=== PATIENT | female | born 1970 | race Asian ===

== ENCOUNTER 2019-06-24 08:37 | Day surgery (SDC) | payer OTHER ==
[~2019-06-24] VITALS: Ht 152.4 cm; Wt 58.1 kg
[2019-06-24] VITALS (9 sets, daily range): BP systolic 113–131; BP diastolic 70–89
[~2019-06-24 08:37] MED LIST: DYAZIDE1 CAP PO; MECLIZINE HCL12.5 MG PO
[2019-06-24] MEDS ORDERED: CLARITIN10 M1 ORAL (09:27)
[2019-06-24] MEDS ORDERED: LR 1000ml 1,000 ML IVLG SCH (09:27)
--- NOTE | 2019-06-24 09:29 | Anethesia Preoperative Eval ---
Anesthesia Pre-op PMH/ROS General Date of Evaluation: Jun 24, 2019 Time of Evaluation: 09:29 Anesthesiologist: mariana ASA Score: ASA 3 Mallampati Score Class I : Soft palate, uvula, fauces, pillars visible Class II: Soft palate, uvula, fauces visible Class III: Soft palate, base of uvula visible Class IV: Only hard plate visible Mallampati Classification: Class II Surgeon: jer Diagnosis: gerd, colon screening Surgical Procedure: egd/colonoscopy Anesthesia History: none Social History: smoking Family History: no anesthesia problems Allergies: Coded Allergies: ACETAMINOPHEN (Verified Allergy, Severe, 07/20/12) TIGHTNESS OF JAW PSEUDOEPHEDRINE HCL (Verified Allergy, Severe, 07/20/12) TIGHTNESS OF JAW IBUPROFEN (Verified Allergy, 07/20/12) TIGHTNESS OF JAW PROCHLORPERAZINE EDISYLATE (Verified Allergy, TIGHTNESS OF JAW, 07/20/12) PROCHLORPERAZINE MALEATE (Verified Allergy, TIGHTNESS OF JAW, 07/20/12) Uncoded Allergies: ANESTHESIA (Allergy, Severe, 07/20/12) FACIAL SWELLING AND TIGHTNESS OF JAW Medications: see eMAR Patient NPO?: Yes Past Medical History Cardiovascular: Reports: HTN HEENT: Reports: [place] (L), [place] (R) PSxH Narrative: appendectomy Anesthesia Pre-op Phys. Exam Physician Exam Last Vital Signs Date Time Temp Pulse Resp B/P (MAP) Pulse Ox O2 Delivery O2 Flow Rate FiO2 06/24/19 09:10 Room Air 06/24/19 09:08 97.8 82 18 131/70 100 Constitutional: NAD Neurologic: CN 2-12 intact Cardiovascular: RRR Respiratory: CTA Gastrointestinal: S/NT/ND Airway Exam Mallampati Score: Class II MO: full Neck: flexible TMD: 2fb ROM: full Anesthesia Pre-op A/P Labs Urine Test Labs Test 06/24/19 08:50 Urine HCG, Qualitative Negative (NEGATIVE) Risk Assessment & Plan Assessment: asa3 Plan: mac Status Change Before Surgery: No Pre-Antibiotics Drug: Andreina Oliveros MD Jun 24, 2019 09:29
[2019-06-24] MEDS ORDERED: Midazolam 2mg/2ml Inj IVP PRN (09:30)
[2019-06-24] MEDS ORDERED: Atropine Inj 1mg/10ml Syr IV PRN (09:30)
[2019-06-24] MEDS ORDERED: DiphenhydrAMINE 50mg/ml Inj IVP PRN (09:30)
[2019-06-24] MEDS ORDERED: fentaNYL 100 mcg/2 mL IV PRN (09:30)
[2019-06-24] MEDS ORDERED: XANAX0.25 MG ORAL (09:30)
[2019-06-24] MEDS ORDERED: SINGULAIR10 MG ORAL (09:30)
[2019-06-24] MEDS ORDERED: NORVASC10 MG ORAL (09:30)
[2019-06-24] MEDS ORDERED: Propofol 200mg/20ml IV ONE (10:00)
[2019-06-24] MEDS ORDERED: Esmolol 100mg/10ml Inj ONE (10:00)
[2019-06-24] MEDS ORDERED: Lidocaine 1% MPF 10mg/ml 5ml ONE (10:00)
[2019-06-24] MEDS ORDERED: LR 1000ml ONE (10:00)
--- NOTE | 2019-06-24 10:17 | Pre-Procedure Note/Attestation ---
Pre-Procedure Note/Attestation Complete Prior to Procedure Planned Procedure: not applicable Procedure Narrative: esophagogastroduodenoscopy and colonoscopy Indications for Procedure Pre-Operative Diagnosis: abd pain, screening colon Attestation I attest that I discussed the nature of the procedure; its benefits; risks and complications; and alternatives (and the risks and benefits of such alternatives ), prior to the procedure, with the patient (or the patient's legal commercial sales representative). I attest that, if there was a reasonable possibility of needing a blood transfusion, the patient (or the patient's legal commercial sales representative) was given the [facility] standardized written summary, pursuant to the Angel Johana Blood Safety Act ([place] Health and Safety Code # 1645, as amended). I attest that I re-evaluated the patient just prior to the surgery and that there has been no change in the patient's H&P, except as documented below: Zeeshan Mclean MD Jun 24, 2019 10:17
--- NOTE | 2019-06-24 10:18 | Short Stay Surgery H&P ---
History of Present Illness History of Present Illness Chief Complaint abd pain, screening colon HPI Sara Castle is a 48 year old female who was admitted on for Gerd And Colonoscopy Screening Patient History Allergies: Coded Allergies: ACETAMINOPHEN (Verified Allergy, Severe, 07/20/12) TIGHTNESS OF JAW PSEUDOEPHEDRINE HCL (Verified Allergy, Severe, 07/20/12) TIGHTNESS OF JAW IBUPROFEN (Verified Allergy, 07/20/12) TIGHTNESS OF JAW PROCHLORPERAZINE EDISYLATE (Verified Allergy, TIGHTNESS OF JAW, 07/20/12) PROCHLORPERAZINE MALEATE (Verified Allergy, TIGHTNESS OF JAW, 07/20/12) Uncoded Allergies: ANESTHESIA (Allergy, Severe, 07/20/12) FACIAL SWELLING AND TIGHTNESS OF JAW PAST MEDICAL HISTORY: (1) GERD (gastroesophageal reflux disease) Medication History Scheduled Alprazolam* (Xanax*), 0.25 MG ORAL PRN, (Reported) Amlodipine Besylate (Norvasc), 10 MG ORAL DAILY, (Reported) Loratadine (Claritin), 10 MG ORAL DAILY, (Reported) Montelukast Sodium* (Singulair*), 10 MG ORAL DAILY, (Reported) Discontinued Medications Meclizine Hcl* (Meclizine*), 12.5 MG PO TID PRN, (Reported) Discontinued Reason: Pt stopped taking med Triamterene/Hctz (Triamterene-Hctz 37.5-25 mg Cp), 1 CAP PO DAILY, (Reported) Discontinued Reason: Pt stopped taking med Review of Systems Cardiovascular: Reports: no symptoms Respiratory: Reports: no symptoms Skeletal: Reports: no symptoms Gastrointestinal: Reports: no symptoms, gastro esophageal reflux disease Genitourinary: Reports: no symptoms Neurologic: Reports: no symptoms Endocrine: Reports: no symptoms Hematologic: Reports: no symptoms Physical Exam Vital Signs Last Vital Signs Date Time Temp Pulse Resp B/P (MAP) Pulse Ox O2 Delivery O2 Flow Rate FiO2 06/24/19 09:10 Room Air 06/24/19 09:08 97.8 82 18 131/70 100 Labs Laboratory Tests Test 06/24/19 08:50 Urine HCG, Qualitative Negative (NEGATIVE) Skin: normal HENT: normal Heart: normal Lungs: normal Abdomen: normal Extremities: normal Plan Plan of Care esophagogastroduodenoscop and colonoscopy Attestation Are the patient's medical conditions optimized for surgery? Attestation Response: yes Zeeshan Mclean MD Jun 24, 2019 10:18
--- NOTE | 2019-06-24 10:46 | Endoscopy Procedure Note ---
Endoscopy Procedure Note General Indication for Procedure: screening colon, GERD Procedures Performed: EGD, colonoscopy Operative Findings/Diagnosis: 3 polyps Specimen: yes Pt Tolerated Procedure Well: Yes Estimated Blood Loss: none Anesthesia Anesthesiologist: shoaib Anesthesia: MAC Inserted Devices Implant(s) used?: No Quality Quality of Bowel Preparation: Good Did scope reach the cecum?: Yes Was there any complications?: No GI Core Measures 50 yrs or older w/o bx or poly: No 10yrs. F/U recommended: Yes If not recommended, why?: Above average risk 18 years or older w/prev. colo: No Zeeshan Mclean MD Jun 24, 2019 10:46
--- NOTE | 2019-06-24 11:04 | Immediate Post-Op Evaluation ---
Immediate Post-Op Evalulation Immediate Post-Op Evalulation Procedure: egd/colonoscopy w/bx Date of Evaluation: Jun 24, 2019 Time of Evaluation: 11:04 IV Fluids: 500ml lr Blood Products: none Estimated Blood Loss: neglligible Blood Pressure Systolic: 117 Blood Pressure Diastolic: 86 Pulse Rate: 98 Respiratory Rate: 18 O2 Sat by Pulse Oximetry: 99 Temperature (Fahrenheit): 97.8 Pain Score (1-10): 0 Nausea: No Vomiting: No Complications none Patient Status: awake, reacts, patent Hydration Status: adequate Drug: Andreina Oliveros MD Jun 24, 2019 11:04
--- NOTE | 2019-06-24 11:07 | 48 Hour Post Anesthesia Eval ---
Post Anesthesia Evaluation Procedure: egd/colonoscopy w/bx Date of Evaluation: Jun 24, 2019 Time of Evaluation: 11:06 Blood Pressure Systolic: 116 0: 75 Pulse Rate: 86 Respiratory Rate: 18 Temperature (Fahrenheit): 97.8 O2 Sat by Pulse Oximetry: 99 Airway: patent Nausea: No Vomiting: No Pain Intensity: 0 Hydration Status: adequate Cardiopulmonary Status: stable Mental Status/LOC: patient returned to baseline Post-Anesthesia Complications: none Follow-up care needed: N/A Andreina Cantor MD Jun 24, 2019 11:07
--- NOTE | 2019-06-24 19:15 | Procedure Note ---
DATE OF PROCEDURE: 06/24/2019 SURGEON: Zeeshan Mclean M.D. PROCEDURE: Upper endoscopy with biopsy and colonoscopy with snare polypectomy and biopsy. ANESTHESIA: Per Dr. Mathew. INSTRUMENT: Olympus adult flexible upper endoscope and colonoscope. INDICATIONS: Screening colonoscopy evaluation and abdominal pain. REASON FOR PROCEDURE: The procedure, risks, benefits, and possible consequences, including hemorrhage, aspiration, perforation and infection, and alternative treatments, were explained to the patient/legal guardian by Dr. Zeeshan Mclean and the patient/legal guardian understood and accepted these risks. PROCEDURE IN DETAIL: After informed consent was obtained and the patient was adequately sedated, Olympus upper endoscope was advanced from mouth into the second portion of the duodenum and retroflexion was performed in the stomach. GE junction was found to be about 35 cm from the incisors. No evidence of any esophagitis or esophageal ulceration. In the stomach, there was mild atrophic gastritis. Random biopsy from antrum and body was obtained to rule out H. pylori infection. Otherwise, the rest of the upper endoscopic examination grossly within normal limits. At this time, the upper endoscope was retrieved and the patient was turned over for colonoscopy. First, rectal exam was performed, which was positive for large internal hemorrhoids. Then, the scope was the advanced from rectum into the cecum and subsequently to terminal ileum. Quality of prep was good. The patient had two diverticula, one in the cecum and one in the proximal ascending colon. The patient had a total of three polyps in the rectum, one was measured about 8 mm, removed with the hot snare polypectomy technique. The other two were diminutive, removed with the cold biopsy forceps technique. Retroflexion of rectum showed evidence of large internal hemorrhoids. SUMMARY OF FINDINGS: 1. Mild atrophic gastritis, status post biopsy. 2. Internal hemorrhoids. 3. Three rectal polyps removed. See above for details. 4. Right-sided 1 or 2 diverticula. RECOMMENDATIONS: Follow up pathology. Repeat colonoscopy in three years. Zeeshan Mclean M.D. DR: LOW JOB#: [id number] CC:
== END 2019-06-24 13:00 | disposition home or self-care (01) ==
LOC: GAS 08:37
DX: Z12.11 Encounter for screening for malignant neoplasm of colon (principal); R10.9 Unspecified abdominal pain; K64.8 Other hemorrhoids; I10 Essential (primary) hypertension; K62.1 Rectal polyp; K57.90 Diverticulosis of intestine, part unspecified, without perforation or abscess without bleeding; Z88.6 Allergy status to analgesic agent; Z88.8 Allergy status to other drugs, medicaments and biological substances; Z90.89 Acquired absence of other organs; K29.50 Unspecified chronic gastritis without bleeding; D12.6 Benign neoplasm of colon, unspecified
CPT/HCPCS: 43239; 45380; 45385; 81025; 93005; J2704; 94003; 94150